=== PATIENT | male | born 1995 | race Caucasian/White ===

== ENCOUNTER 2018-01-08 01:09 | Emergency (ER) | payer MEDICAID, OTHER ==
[~2018-01-08] VITALS: Ht 175.3 cm; Wt 86.0 kg
[2018-01-08 04:35] VITALS: BP 132/81
== END 2018-01-08 05:49 | disposition home or self-care (01) ==
LOC: ER 01:09
DX: S01.511A Laceration without foreign body of lip, initial encounter (principal); W51.XXXA Accidental striking against or bumped into by another person, initial encounter; Y93.67 Activity, basketball; Y92.89 Other specified places as the place of occurrence of the external cause
CPT/HCPCS: 12011; 99283; Z7610

== ENCOUNTER 2018-01-11 17:12 | Emergency (ER) | payer SELFPAY ==
[~2018-01-11] VITALS: Ht 175.3 cm; Wt 85.0 kg
[2018-01-11 20:40] VITALS: BP 130/78
== END 2018-01-11 20:41 | disposition home or self-care (01) ==
LOC: ER 17:12
DX: S01.81XD Laceration without foreign body of other part of head, subsequent encounter (principal); X58.XXXD Exposure to other specified factors, subsequent encounter
CPT/HCPCS: 99281

== ENCOUNTER 2018-01-17 18:52 | Emergency (ER) | payer SELFPAY ==
[~2018-01-17] VITALS: Ht 175.3 cm; Wt 85.0 kg
[2018-01-17 22:32] VITALS: BP 138/74
== END 2018-01-17 22:34 | disposition home or self-care (01) ==
LOC: ER 18:52
DX: Z48.02 Encounter for removal of sutures (principal)
CPT/HCPCS: 99283; Z7610